=== PATIENT | female | born 1930 | race Two or more races ===

== ENCOUNTER 2017-03-10 09:30 | Outpatient (CLI) | payer OTHER | END 2017-03-10 09:36 | disposition home or self-care (01) | LOC: SONOGRAMA 09:30 | DX: E04.0 Nontoxic diffuse goiter (principal); E06.4 Drug-induced thyroiditis ==

== ENCOUNTER 2017-05-15 16:43 | Emergency (ER) | payer OTHER ==
[~2017-05-15] VITALS: Ht 165.1 cm; Wt 59.0 kg
[2017-05-15] MEDS ORDERED: NORVASC5 MG (17:26)
[2017-05-15] MEDS ORDERED: SYNTROID (17:27)
== END 2017-05-15 18:15 | disposition home or self-care (01) ==
LOC: ER 16:43
DX: S00.83XA Contusion of other part of head, initial encounter (principal); S00.81XA Abrasion of other part of head, initial encounter; W18.39XA Other fall on same level, initial encounter; Y93.89 Activity, other specified; Y92.89 Other specified places as the place of occurrence of the external cause; Y99.8 Other external cause status

== ENCOUNTER 2018-09-09 12:35 | Outpatient (CLI) | payer OTHER ==
[~2018-09-09 12:35] MED LIST: NORVASC5 MG; SYNTROID
== END 2018-09-09 12:36 | disposition home or self-care (01) ==
LOC: NUCLEAR 12:35
DX: M81.0 Age-related osteoporosis without current pathological fracture (principal)

== ENCOUNTER 2018-12-06 08:19 | Outpatient (CLI) | payer OTHER | END 2018-12-06 08:23 | disposition home or self-care (01) | LOC: MAMO-SONO 08:19 | DX: Z12.31 Encounter for screening mammogram for malignant neoplasm of breast (principal); Z87.898 Personal history of other specified conditions; N60.19 Diffuse cystic mastopathy of unspecified breast ==

== ENCOUNTER 2019-10-02 10:45 | Outpatient (CLI) | payer OTHER | END 2019-10-02 10:49 | disposition home or self-care (01) | LOC: RAD 10:45 | DX: R07.89 Other chest pain (principal) ==

== ENCOUNTER 2020-02-05 10:34 | Outpatient (CLI) | payer OTHER | END 2020-02-05 10:41 | disposition home or self-care (01) | LOC: MAMO-SONO 10:34 | DX: N60.01 Solitary cyst of right breast (principal); N64.59 Other signs and symptoms in breast; Z12.31 Encounter for screening mammogram for malignant neoplasm of breast ==